=== PATIENT | male | born 1995 | race Caucasian/White ===

== ENCOUNTER 2019-07-02 15:40 | Outpatient (CLI) | payer BC, SELFPAY ==
--- NOTE | ~2019-07-02 | XR_ITS ---
EXAMINATION: XR chest 2V EXAM DATE: 07/02/2019 16:05 INDICATION: Intermittent hemoptysis for one month. TECHNIQUE: Frontal and lateral projections of the chest obtained and reviewed. Comparison is made to prior examination from 11/24/2015. FINDINGS: The lungs are clear. There are no pleural effusions. The cardiomediastinal silhouette is within normal limits. There is no pneumothorax suspected. The bones and soft tissues are unremarkab le. IMPRESSION: No acute cardiopulmonary findings. Reviewed, dictated and finalized at location G.
== END 2019-07-02 15:41 | disposition home or self-care (01) ==
LOC: CHSIMG 15:47
PROVIDERS: Visit Provider Nurse Practitioner Family
DX: R04.2 Hemoptysis (principal)
CPT/HCPCS: 71046

== ENCOUNTER 2023-11-08 11:54 | Outpatient (CLI) | payer SELFPAY ==
[2023-11-08 12:43] LABS: Influenza A QL RT-PCR Negative (Negative); Influenza B QL RT-PCR Negative (Negative); RSV RNA, RT-PCR Negative (Negative); SARS-CoV-2 RNA PCR Positive (Negative)
== END 2023-11-08 11:55 | disposition home or self-care (01) ==
PROVIDERS: PCP Family Medicine; Visit Provider Family Medicine
DX: U07.1 COVID-19 (principal)
CPT/HCPCS: 87637